=== PATIENT | female | born 2000 | race Two or more races ===

== ENCOUNTER 2024-04-08 16:16 | Emergency (ER) | payer MEDICAID, OTHER ==
[~2024-04-08] VITALS: Ht 154.9 cm; Wt 93.2 kg
[2024-04-08] MEDS: IPRATROPIUM BROM 0.5 MG/2.5ML INH SOL NEB ONE ×2 (16:59→19:12)
[2024-04-08] MEDS: ALBUTEROL SULF 2.5 MG/0.5ML(0.5%) NEB SOLN NEB ONE ×2 (16:59→19:12)
[2024-04-08] MEDS: methylPREDNISolone SOD SUCC 125 MG/2 ML VL IM ONE (17:38)
--- NOTE | 2024-04-08 18:44 | DVH ---
EXAM: XR Chest, 2 Views CLINICAL INDICATION: SOB TECHNIQUE: Frontal and lateral views of the chest. COMPARISON: None FINDINGS: LUNGS AND PLEURAL SPACES: Unremarkable. No consolidation. No pneumothorax. HEART: Unremarkable. No cardiomegaly. MEDIASTINUM: Unremarkable. Normal mediastinal contour. BONES/JOINTS: Unremarkable. No acute fracture. OTHER FINDINGS: . . . IMPRESSION: No acute cardiopulmonary process. HS:Y
--- NOTE | 2024-04-08 18:48 | ED.PDOC ---
SOB-HPI HPI Comments 23 y.o female presents to the ED for a chief complaint of SOB associated with a productive cough, congestion, wheezing, and substernal chest tightness radiating to her back that presented 2 weeks ago. Patient denies any respiratory history. Patient received one breathing treatment with respiratory relief here. No nausea, vomiting, fever or chills reported. Chief Complaint: Shortness of Breath Time Seen by MD: 18:39 Reviewed notes: Nurses Notes, Medications, Allergies Information Source: Patient Mode of Arrival: Ambulatory Severity: Moderate Timing: Weeks (2) Duration: Since onset Context: At Rest PE Risk Factors: None History of: None Modifying Factors: Nothing Associated Signs and Symptoms: Cough, Nasal Congestion, Chest Pain If cough with SOB: Productive Past Medical History PAST MEDICAL HISTORY: Denies Surgical History: Denies all surgeries INTERPRETIVE PROGRAM COORDINATOR History: No Pertinent INTERPRETIVE PROGRAM COORDINATOR History Family History Family History: Reviewed,noncontributory to illness Social History Smoker: Non-Smoker Alcohol: Denies ETOH Use Drugs: Denies Drug Use Lives In: Home Constitutional: denies: chills, diaphoresis, fatigue, fever, malaise, sweats, weakness, others EENTM: reports: nose congestion; denies: blurred vision, double vision, ear bleeding, ear discharge, ear drainage, ear pain, ear ringing, eye pain, eye redness, hearing loss, mouth pain, mouth swelling, nasal discharge, nose bleeding, nose pain, photophobia, tearing, throat pain, throat swelling, voice changes, others Respiratory: reports: cough, SOB at rest, shortness of breath, SOB with excertion, wheezing; denies: hemoptysis, orthopnea, stridor, others Cardiovascular: reports: chest pain; denies: dizzy spells, diaphoresis, Dyspnea on exertion, edema, irregular heart beat, left arm pain, lightheadedness, palp itations, PND, syncope, others Gastrointestinal: denies: abdomen distended, abdominal pain, blood streaked bowels, constipated, diarrhea, dysphagia, difficulty swallowing, hematemesis, melena, nausea, poor appetite, poor fluid intake, rectal bleeding, rectal pain, vomiting, others Genitourinary: denies: abnormal vagina bleeding, burning, dyspareunia, dysuria, flank pain, frequency, hematuria, incontinence, pain, , vagina discharge, urgency, others Neurological: denies: dizziness, fainting, headache, left sided numbness, left sided weakness, numbness, paresthesia, pre-existing deficit, right sided numbness, right sided weakness, seizure, speech problems, tingling, tremors, weakness, others Musculoskeletal: reports: back pain; denies: gout, joint pain, joint swelling, muscle pain, muscle stiffness, neck pain, others Integumetry: denies: bruises, change in color, change in hair/nails, dryness, laceration, lesions, lumps, rash, wounds, others Allergic/Immunocompromised: denies: Difficulty Healing, Frequent Infections, Hives, Itching, others Hematologic/Lymphatic: denies: anemia, blood clots, easy bleeding, easy bruising, swollen glands, others Endocrine: denies: excessive hunger, excessive sweating, excessive thirst, excessive urination, flushing, intolerance to cold, intolerance to heat, unexplained weight gain, unexplained weight loss, others Psychiatric: denies: anxiety, bipolar disorder, depression, hopeless, panic disorder, schizophrenia, sleepless, suicidal, others All Other Systems: Reviewed and Negative Physical Exam General Appearance: No Apparent Distress, Normal HEENT: Normal ENT Inspection, Pharynx Normal, TMs Normal Neck: Full Range of Motion, Non-Tender, Normal, Normal Inspection Respiratory: Wheezing (right sided ) Cardiovascular: No Edema, No JVD, No Murmur, No Gallop, Normal Peripheral Pulses, Regular Rate/Rhythm Breast Exam: Deferred Gastrointestinal: No Organomegaly, Non Tender, No Pulsatile Mass, Normal Bowel Sounds, Soft Genitalia: Deferred Pelvic: Deferred Rectal: Deferred Extremities: No calf tenderness, Normal capillary refill, Normal inspection, Normal range of motion, Non-tender, No pedal edema Musculoskeletal : Apperance: Normal Neurologic: Alert, cell stripper final II-XII nml as Tested, No Motor Deficits, Normal Affect, Normal Mood, No Sensory Deficits Cerebellar Function: Normal Reflexes: Normal Skin: Dry, Normal Color, Warm Lymphatic: No Adenopathy Was a procedure done? Was a procedure done?: No Differential Dx Differential Diagnosis: Bronchitis, Pneumonia, Respiratory Distress, URI X-Ray, Labs, Meds, VS Vital Signs Date Time Temp Pulse Resp B/P (MAP) Pulse Ox O2 Delivery O2 Flow Rate FiO2 04/08/24 17:05 20 92 Room Air* 0 21 21 04/08/24 16:47 98.4 94 16 144/92 (109) 99 Current Medications Medications (Trade) Dose Ordered Sig/Zaheer Route Start Time Stop Time Status Last Admin Albuterol (Ventolin Medneb) 5 mg ONCE ONCE NEB 04/08/24 16:45 04/08/24 16:47 DC 04/08/24 16:59 Ipratropium [place] (Atrovent Medneb) 0.5 mg ONCE ONCE NEB 04/08/24 16:45 04/08/24 16:47 DC 04/08/24 16:59 Methylprednisolone Sodium Succinate (Solu Medrol) 125 mg ONCE ONCE IM 04/08/24 16:45 04/08/24 16:47 DC 04/08/24 17:38 X-Ray, Labs, Meds, VS Comment Imaging: X-rays and CT scans were reviewed and interpreted by this provider, imaging shows no fractures and no pathological disease. Pending radiology review. Laboratory: Labs reviewed and interpreted by this provider. No significant abnormalities noted. Patient has prior medical visits reviewed. Med reconciliation performed Vital signs reviewed Time of 1ST Reevaluation: 18:44 Reevaluation 1ST: Improved Patient Education/Counseling: Diagnosis, Treatment, Prognosis, Need For Follow Up (Follow up with PCP in the next 2-4 days. Return to the emergency department if symptoms worsen.) Family Education/Counseling: No Family Present Departure 1 Departure Time of Disposition: 18:51 Impression: Primary Impression: Bronchitis Disposition: HOME / SELF CARE / HOMELESS Condition: Fair e-Prescriptions Albuterol Sulfate (Albuterol Sulfate Hfa) 108 Mcg/Act Aer 108 MCG IN TID PRN, #1 AER Prov: SHAYAN LANDIN 04/08/24 Azithromycin (Zithromax Z-Paul) 250 Mg Tab 250 MG PO DAILY for 5 Days, #6 TAB Prov: SHAYAN LANDINP 04/08/24 Prednisone (Prednisone) 20 Mg Tab 20 MG PO DAILY for 5 Days, #5 MG Prov: SHAYAN LANDINP 04/08/24 Discharged With: Self Critical Care Note Critical Care Time?: No Stability Stability form required: No Heart Score Heart Score: Heart Score Response (Comments) Value History Slightly Suspicious 0 EKG Normal 0 Age <45 0 Risk Factors No known risk factors 0 Troponin Normal limit 0 Total 0 I personally scribed for SHAYAN LANDIN ([facility]) on 04/08/24 at 18:48. Electronically submitted by Jessica Castaneda ([facility]). SHAYAN LANDIN Apr 08, 2024 18:48
[2024-04-08] MEDS ORDERED: ALBU108A5 IN (18:52)
[2024-04-08] MEDS ORDERED: PRED20TA2 PO (18:52)
[2024-04-08] MEDS ORDERED: AZITTAB PO (18:52)
[2024-04-08 18:58] VITALS: BP 134/93
[2024-04-08 19:51] VITALS: PULSE 89; RESP 20; O2SAT 98
== END 2024-04-08 19:55 | disposition home or self-care (01) ==
LOC: ER 16:26
DX: J40 Bronchitis, not specified as acute or chronic (principal)
CPT/HCPCS: 71046; 94640; 96372; 99285; J2919

== ENCOUNTER 2024-06-17 20:39 | Emergency (ER) | payer MEDICAID ==
[~2024-06-17] VITALS: Ht 154.9 cm; Wt 97.6 kg
[~2024-06-17 20:39] MED LIST: ALBU108A5 IN; AZITTAB PO; PRED20TA2 PO
--- NOTE | 2024-06-17 21:00 | ED.PDOC ---
SOB-HPI HPI Comments 24 y.o female presents to the ED for a chief complaint of SOB associated with wheezing and a productive cough that started 2 weeks ago. Patient reports similar complaint 2 months ago, was prescribed an inhaler in which she used these past 2 weeks that have alleviated some of her SOB but states she ran out of the inhaler earlier today. Patient reports SOB has decreased but wheezing is still present. Patient also mentions chest wall pain due to productive dry cough with no phlegm sputum noted. She denies any chest pain, fever, chills, nausea or vomiting. Patient also denies any medical history, including respiratory illnesses such as asthma or COPD. Time Seen by MD: 20:45 Reviewed notes: Nurses Notes, Medications, Allergies Information Source: Patient Mode of Arrival: Ambulatory Severity: Moderate Timing: Weeks (2) Duration: Since onset Context: At Rest PE Risk Factors: None History of: None Modifying Factors: Nothing Associated Signs and Symptoms: Wheeze, Cough If cough with SOB: Productive Past Medical History PAST MEDICAL HISTORY: Denies Surgical History: Denies all surgeries CLINICAL PHARMACIST History: No Pertinent CLINICAL PHARMACIST History Family History Family History: Reviewed,noncontributory to illness Social History Smoker: Non-Smoker Alcohol: Denies ETOH Use Drugs: Denies Drug Use Lives In: Home Constitutional: denies: chills, diaphoresis, fatigue, fever, malaise, sweats, weakness, others EENTM: denies: blurred vision, double vision, ear bleeding, ear discharge, ear drainage, ear pain, ear ringing, eye pain, eye redness, hearing loss, mouth pain, mouth swelling, nasal discharge, nose bleeding, nose congestion, nose pain, photophobia, tearing, throat pain, throat swelling, voice changes, others Respiratory: reports: cough, SOB at rest, shortness of breath, SOB with excertion, wheezing; denies: hemoptysis, orthopnea, stridor, others Cardiovascular: denies: chest pain, dizzy spells, diaphoresis, Dyspnea on exertion, edema, irregular heart beat, left arm pain, lightheadedness, palpitations, PND, syncope, others Gastrointestinal: denies: abdomen distended, abdominal pain, blood streaked bowels, constipated, diarrhea, dysphagia, difficulty swallowing, hematemesis, melena, nausea, poor appetite, poor fluid intake, rectal bleeding, rectal pain, vomiting, others Genitourinary: denies: abnormal vagina bleeding, burning, dyspareunia, dysuria, flank pain, frequency, hematuria, incontinence, pain, , vagina dischar ge, urgency, others Neurological: denies: dizziness, fainting, headache, left sided numbness, left sided weakness, numbness, paresthesia, pre-existing deficit, right sided numbness, right sided weakness, seizure, speech problems, tingling, tremors, weakness, others Musculoskeletal: denies: back pain, gout, joint pain, joint swelling, muscle pain, muscle stiffness, neck pain, others Integumetry: denies: bruises, change in color, change in hair/nails, dryness, laceration, lesions, lumps, rash, wounds, others Allergic/Immunocompromised: denies: Difficulty Healing, Frequent Infections, Hives, Itching, others Hematologic/Lymphatic: denies: anemia, blood clots, easy bleeding, easy bruising, swollen glands, others Endocrine: denies: excessive hunger, excessive sweating, excessive thirst, excessive urination, flushing, intolerance to cold, intolerance to heat, unexplained weight gain, unexplained weight loss, others Psychiatric: denies: anxiety, bipolar disorder, depression, hopeless, panic disorder, schizophrenia, sleepless, suicidal, others All Other Systems: Reviewed and Negative Physical Exam General Appearance: No Apparent Distress, Normal HEENT: Normal ENT Inspection, Pharynx Normal, TMs Normal Neck: Full Range of Motion, Non-Tender, Normal, Normal Inspection Respiratory: Wheezing (diffused wheezing; expiratory and inspiratory wheeze) Cardiovascular: No Edema, No JVD, No Murmur, No Gallop, Normal Peripheral Pulses, Regular Rate/Rhythm Breast Exam: Deferred Gastrointestinal: No Organomegaly, Non Tender, No Pulsatile Mass, Normal Bowel Sounds, Soft Genitalia: Deferred Pelvic: Deferred Rectal: Deferred Extremities: No calf tenderness, Normal capillary refill, Normal inspection, Normal range of motion, Non-tender, No pedal edema Musculoskeletal : Apperance: Normal Neurologic: Alert, civil design specialist II-XII nml as Tested, No Motor Deficits, Normal Affect, Normal Mood, No Sensory Deficits Cerebellar Function: Normal Reflexes: Normal Skin: Dry, Normal Color, Warm Lymphatic: No Adenopathy Was a procedure done? Was a procedure done?: No Differential Dx Differential Diagnosis: Asthma, Bronchitis, Pneumonia, Respiratory Distress, URI X-Ray, Labs, Meds, VS Vital Signs Date Time Temp Pulse Resp B/P (MAP) Pulse Ox O2 Delivery O2 Flow Rate FiO2 06/17/24 23:12 98.6 103 16 132/75 (94) 94 98.6 06/17/24 23:11 20 93 Room Air* 0 21 06/17/24 22:05 20 100 Room Air* 0 21 06/17/24 20:55 98.8 105 20 134/94 (107) 98 98.8 Current Medications Medications (Trade) Dose Ordered Sig/Zaheer Route Start Time Stop Time Status Last Admin Albuterol (Ventolin Medneb) 10 mg ONCE ONCE NEB 06/17/24 21:15 06/17/24 21:16 DC 06/17/24 22:05 Ipratropium [place] (Atrovent Medneb) 1 mg ONCE ONCE NEB 06/17/24 21:15 06/17/24 21:16 DC 06/17/24 22:05 Prednisone 60 mg ONCE ONCE PO 06/17/24 21:15 06/17/24 21:16 DC 06/17/24 21:57 Albuterol (Ventolin Medneb) 10 mg ONCE ONCE NEB 06/17/24 23:15 06/17/24 23:16 DC 06/17/24 23:12 Ipratropium [place] (Atrovent Medneb) 1 mg ONCE ONCE NEB 06/17/24 23:15 06/17/24 23:16 DC 06/17/24 23:11 X-Ray, Labs, Meds, VS Comment CXR IMPRESSION: No abnormality. MDM: Patient with history as above presented with shortness of breath. History obtained from patient. Patient was nontoxic, stable, afebrile, ambulatory, no acute distress. Exam as above. Independently reviewed imaging. Chest x-ray did not show acute cardiopulmonary disease. Reviewed external records. All findings were discussed with the patient. Differential diagnosis considered. Overall presentation is consistent with asthma exacerbation. Low suspicion for pneumonia, hypoxia, respiratory failure. Patient was treated with three Duonebs and prednisone with improvement in symptoms. Patient was reevaluated and vital signs were reviewed. Consideration was given for admission, but the patient was stable for outpatient management. Patient was prescribed Albuterol and Prednisone for outpatient treatment. Disposition: Discussed the need to follow up diagnostics, including incidental findings. Discharged the patient with instructions to obtain outpatient follow up in 1-2 days of today's symptoms and findings, with strict return precautions if patient develops new or worsening symptoms. This medical document was created using the [employer] system. Although this document has been carefully reviewed, there may still be some phonetic and typographical errors, which are due to imperfections of the software program, and do not reflect any compromise in the patient's medical care. Time of 1ST Reevaluation: 21:12 Reevaluation 1ST: Unchanged Time of 2ND Reevaluation: 23:11 Reevaluation 2ND: Improved Time of 3RD Reevaluation: 00:18 Reevaluation 3RD: Improved Patient Education/Counseling: Diagnosis, Treatment, Prognosis, Need For Follow Up Family Education/Counseling: No Family Present Departure 1 Departure Time of Disposition: 00:18 Impression: Primary Impression: Acute asthma exacerbation Qualified Codes: J45.901 - Unspecified asthma with (acute) exacerbation Disposition: 01 HOME / SELF CARE / HOMELESS Condition: Fair e-Prescriptions Albuterol Sulfate (Albuterol Sulfate Hfa) 108 Mcg/Act Aer 108 MCG IN Q4HPRN PRN, #1 AER Prov: PAYTON WORKMAN 06/17/24 Prednisone (Prednisone) 20 Mg Tab 40 MG PO DAILY for 5 Days, #10 TAB Prov: PAYTON WORKMAN 06/17/24 Critical Care Note Critical Care Time?: No Stability Stability form required: No Heart Score Heart Score: Heart Score Response (Comments) Value History N/A 0 EKG N/A 0 Age N/A 0 Risk Factors N/A 0 Troponin N/A 0 Total 0 I personally scribed for UTE HENDERSON MD ([email or web address]) on 06/17/24 at 21:12. Electronically submitted by Jessica Castaneda ([facility]). PAYTON WORKMAN Jun 17, 2024 21:00 UTE HENDERSON MD Jun 17, 2024 21:12
--- NOTE | 2024-06-17 21:52 | DVH ---
CHEST RADIOGRAPH Indication: R/o pneumonia Technique: Frontal and lateral view of the chest was obtained Comparison: XY CHEST TWO VIEWS ROUTINE on DOS: 04/08/24 FINDINGS: Lines and Tubes: None Lungs: Clear Pleura: No effusion. No pneumothorax. Cardiomediastinal contours: Unremarkable Bones: Unremarkable IMPRESSION: No abnormality.
[2024-06-17] MEDS: predniSONE 20 MG TAB PO ONE (21:57)
[2024-06-17] MEDS: ALBUTEROL SULF 2.5 MG/0.5ML(0.5%) NEB SOLN NEB ONE ×2 (22:05→23:12)
[2024-06-17] MEDS: IPRATROPIUM BROM 0.5 MG/2.5ML INH SOL NEB ONE ×2 (22:05→23:11)
[2024-06-17 23:12] VITALS: BP 132/75; PULSE 103; TEMP 98.6
[2024-06-17] MEDS ORDERED: PRED20TA2 PO (23:13)
[2024-06-17] MEDS ORDERED: ALBU108A5 IN (23:13)
[2024-06-18 00:22] VITALS: RESP 16; O2SAT 99
[2024-06-18] MEDS: ALBUTEROL SULF 2.5 MG/0.5ML(0.5%) NEB SOLN NEB ONE (00:22)
[2024-06-18] MEDS: IPRATROPIUM BROM 0.5 MG/2.5ML INH SOL NEB ONE (00:22)
== END 2024-06-18 00:41 | disposition home or self-care (01) ==
LOC: ER 20:39
DX: J45.901 Unspecified asthma with (acute) exacerbation (principal)
CPT/HCPCS: 71046; 94640; 99285; J7512

== ENCOUNTER 2024-08-09 20:15 | Emergency (ER) | payer MEDICAID ==
[~2024-08-09] VITALS: Ht 154.9 cm; Wt 99.7 kg
[2024-08-09] MEDS: ALBUTEROL SULF 2.5 MG/0.5ML(0.5%) NEB SOLN NEB ONE (22:46)
[2024-08-09] MEDS: IPRATROPIUM BROM 0.5 MG/2.5ML INH SOL NEB ONE (22:46)
[2024-08-09 22:49] VITALS: BP 132/83; PULSE 83; RESP 17; TEMP 98.6; O2SAT 96
[2024-08-09] MEDS: DexAMETHasone SOD PHOS 10MG/1ML VIAL INJ IM ONE (22:54)
[2024-08-09] MEDS ORDERED: ALBU108A5 IN (23:29)
--- NOTE | 2024-08-09 23:29 | ED.PDOC ---
SOB-HPI HPI Comments PT HAS A HISTORY OF ASTHMA NOT HAVING ANY PROBLEMS TONIGHT BUT RUN OUT OF [facility] AND HER DOCTOR GAVE HER AN APPOINTMENT IN SEPTEMBER. Chief Complaint: Asthma Time Seen by MD: 20:38 Reviewed notes: Nurses Notes, Medications, Allergies Information Source: Patient Mode of Arrival: Ambulatory Past Medical History PAST MEDICAL HISTORY: Asthma Surgical History: Denies all surgeries OFFSET LITHOGRAPHIC PRESS OPERATOR History: No Pertinent OFFSET LITHOGRAPHIC PRESS OPERATOR History Family History Family History: Reviewed,noncontributory to illness Social History Smoker: Non-Smoker Alcohol: Denies ETOH Use Drugs: Denies Drug Use Lives In: Home Constitutional: denies: chills, diaphoresis, fatigue, fever, malaise, sweats, weakness, others EENTM: denies: blurred vision, double vision, ear bleeding, ear discharge, ear drainage, ear pain, ear ringing, eye pain, eye redness, hearing loss, mouth pain, mouth swelling, nasal discharge, nose bleeding, nose congestion, nose pain, photophobia, tearing, throat pain, throat swelling, voice changes, others Respiratory: reports: cough, wheezing; denies: hemoptysis, orthopnea, SOB at rest, shortness of breath, SOB with excertion, stridor, others Cardiovascular: denies: chest pain, dizzy spells, diaphoresis, Dyspnea on exertion, edema, irregular heart beat, left arm pain, lightheadedness, palpitations, PND, syncope, others Gastrointestinal: denies: abdomen distended, abdominal pain, blood streaked bowels, constipated, diarrhea, dysphagia, difficulty swallowing, hematemesis, melena, nausea, poor appetite, poor fluid intake, rectal bleeding, rectal pain, vomiting, others Genitourinary: denies: abnormal vagina bleeding, burning, dyspareunia, dysuria, flank pain, frequency, hematuria, incontinence, pain, , vagina discharge, urgency, others Neurological: denies: dizziness, fainting, headache, left sided numbness, left sided weakness, numbness, paresthesia, pre-existing deficit, right sided numbness, right sided weakness, seizure, speech problems, tingling, tremors, weakness, others Musculoskeletal: denies: back pain, gout, joint pain, joint swelling, muscle pain, muscle stiffness, neck pain, others Integumetry: denies: bruises, change in color, change in hair/nails, dryness, laceration, lesions, lumps, rash, wounds, others Allergic/Immunocompromised: denies: Difficulty Healing, Frequent Infections, Hives, Itching, others Hematologic/Lymphatic: denies: anemia, blood clots, easy bleeding, easy bruising, swollen glands, others Endocrine: denies: excessive hunger, excessive sweating, excessive thirst, excessive urination, flushing, intolerance to cold, intolerance to heat, unexplained weight gain, unexplained weight loss, others Psychiatric: denies: anxiety, bipolar disorder, depression, hopeless, panic disorder, schizophrenia, sleepless, suicidal, others Physical Exam General Appearance: No Apparent Distress, Normal HEENT: Normal ENT Inspection, Pharynx Normal, TMs Normal Neck: Full Range of Motion, Non-Tender Respiratory: Chest Non-Tender, Expiration, Inspiration, No Accessory Muscle Use, No Respiratory Distress, Wheezing Cardiovascular: No Edema, No JVD, No Murmur, No Gallop, Normal Peripheral Pulses, Regular Rate/Rhythm Breast Exam: Deferred Gastrointestinal: No Organomegaly, Non Tender, No Pulsatile Mass, Normal Bowel Sounds, Soft Genitalia: Deferred Pelvic: Deferred Rectal: Deferred Extremities: Normal capillary refill, Normal inspection, Normal range of motion, Non-tender, No pedal edema Musculoskeletal : Apperance: Normal Neurologic: Alert, search director II-XII nml as Tested, No Motor Deficits, Normal Affect, Normal Mood, No Sensory Deficits Cerebellar Function: Normal Reflexes: Normal Skin: Dry, Normal Color, Warm Lymphatic: No Adenopathy Was a procedure done? Was a procedure done?: No Differential Dx Differential Diagnosis: Asthma, Bronchitis, Panic Attack, Pneumonia X-Ray, Labs, Meds, VS Vital Signs Date Time Temp Pulse Resp B/P (MAP) Pulse Ox O2 Delivery O2 Flow Rate FiO2 08/09/24 22:49 98.6 83 17 132/83 (99) 96 98.6 08/09/24 22:49 83 17 96 Room Air 08/09/24 22:46 18 93 Room Air* 0 21 08/09/24 20:20 97.8 105 18 127/94 (105) 95 97.8 Current Medications Medications (Trade) Dose Ordered Sig/Zaheer Route Start Time Stop Time Status Last Admin Albuterol (Ventolin Medneb) 5 mg ONCE ONCE NEB 08/09/24 22:30 08/09/24 22:31 DC 08/09/24 22:46 Ipratropium [place] (Atrovent Medneb) 0.5 mg ONCE ONCE NEB 08/09/24 22:30 08/09/24 22:31 DC 08/09/24 22:46 Dexamethasone Sodium Phosphate (Decadron Injection) 10 mg ONCE ONCE IM 08/09/24 22:30 08/09/24 22:31 DC 08/09/24 22:54 X-Ray, Labs, Meds, VS Comment Patient received duo neb x1 lung sounds clear equal bilateral on exam patient requesting discharge at this time. Script for refill patient's albuterol advis ed to take medications as prescribed side effects discussed advised to follow up with her PCP for future refills advised her of the importance of keeping her rescue inhaler medication refilled at all times and not patient indicates understanding agrees with discharge plan of care. ER Return precautions given. Time of 1ST Reevaluation: 22:00 Reevaluation 1ST: Unchanged Time of 2ND Reevaluation: 23:44 Reevaluation 2ND: Improved Patient Education/Counseling: Diagnosis, Treatment, Prognosis, Need For Follow Up Family Education/Counseling: No Family Present Departure 1 Departure Time of Disposition: 23:44 Impression: Primary Impression: Acute asthma Disposition: 01 HOME / SELF CARE / HOMELESS Condition: Stable e-Prescriptions Albuterol Sulfate (Albuterol Sulfate Hfa) 108 Mcg/Act Aer 108 MCG IN Q4HPRN PRN, #1 AER Prov: MONI MERA 08/09/24 Discharged With: Self Critical Care Note Critical Care Time?: No Stability Stability form required: No Heart Score Heart Score: Heart Score Response (Comments) Value History N/A 0 EKG N/A 0 Age <45 0 Risk Factors N/A 0 Troponin N/A 0 Total 0 MONI MERA August 09, 2024 23:29
== END 2024-08-09 23:42 | disposition home or self-care (01) ==
LOC: ER 20:15
DX: J45.909 Unspecified asthma, uncomplicated (principal); Z76.0 Encounter for issue of repeat prescription
CPT/HCPCS: 94640; 96372; 99283; J1100

== ENCOUNTER 2024-11-23 13:20 | Emergency (ER) | payer MEDICAID ==
[~2024-11-23] VITALS: Ht 154.9 cm; Wt 99.0 kg
--- NOTE | 2024-11-23 14:42 | ED.PDOC ---
Back pain HPI HPI Comments This is a 24 year old female presenting to the ED with chief complaint of back pain. Patient reports that she had bent down yesterday, causing her to feel like she pulled something in her lower back and she is now experiencing right lower back pain that radiates down her right leg. Patient relays that she has tried using lidocaine patches and Ibuprofen with minimal relief noted. Patient denies any numbness, weakness, tingling, fall, or injury. Chief Complaint: Back Pain Time Seen by MD: 14:41 Reviewed Notes: Nurses Notes, Medications, Allergies Allergies: Coded Allergies: NO KNOWN ALLERGIES (Unverified , 04/08/24) Home Meds Active Scripts Cyclobenzaprine Hcl (Cyclobenzaprine Hcl) 10 Mg Tab, 10 MG PO TID for 10 Days, #30 TAB Prov:SYLVIA BEAUCHAMP MD 11/23/24 Diclofenac Potassium (Diclofenac Potassium) 50 Mg Tab, 1 TAB PO TIDP for 10 Days, #30 TAB Prov:SYLVIA BEAUCHAMP MD 11/23/24 Albuterol Sulfate (Albuterol Sulfate Hfa) 108 Mcg/Act Aer, 108 MCG IN Q4HPRN PRN, #1 AER Prov:MONI MERA TIMBER HARVESTER OPERATOR 08/09/24 Prednisone (Prednisone) 20 Mg Tab, 40 MG PO DAILY for 5 Days, #10 TAB Prov:PAYTON WORKMAN PAC 06/17/24 Albuterol Sulfate (Albuterol Sulfate Hfa) 108 Mcg/Act Aer, 108 MCG IN TID PRN, #1 AER Prov:SHAYAN LNADIN TIMBER HARVESTER OPERATOR 04/08/24 Azithromycin (Zithromax Z-Paul) 250 Mg Tab, 250 MG PO DAILY for 5 Days, #6 TAB Prov:SHAYAN LANDIN TIMBER HARVESTER OPERATOR 04/08/24 Prednisone (Prednisone) 20 Mg Tab, 20 MG PO DAILY for 5 Days, #5 MG Prov:SHAYAN LANDIN TIMBER HARVESTER OPERATOR 04/08/24 Information Source: Patient Mode of Arrival: Ambulatory Timing: Days Duration: Since onset Location of Back pain: (R) Lower back Radiates to: Posterior: (R) Thigh Severity: Moderate Prehospital treatment: None Quality: Aching Onset: Bending History of: None Modifying Factors: Movement Past Medical History PAST MEDICAL HISTORY: Asthma Surgical History: Denies all surgeries CAR HOPPER History: No Pertinent CAR HOPPER History Family History Family History: Reviewed,noncontributory to illness Social History Smoker: Non-Smoker Alcohol: Denies ETOH Use Drugs: Denies Drug Use Lives In: Home Constitutional: denies: chills, diaphoresis, fatigue, fever, malaise, sweats, weakness, others EENTM: denies: blurred vision, double vision, ear bleeding, ear discharge, ear drainage, ear pain, ear ringing, eye pain, eye redness, hearing loss, mouth pain, mouth swelling, nasal discharge, nose bleeding, nose congestion, nose pain, photophobia, tearing, throat pain, throat swelling, voice changes, others Respiratory: denies: cough, hemoptysis, orthopnea, SOB at rest, shortness of breath, SOB with excertion, stridor, wheezing, others Cardiovascular: denies: chest pain, dizzy spells, diaphoresis, Dyspnea on exertion, edema, irregular heart beat, left arm pain, lightheadedness, palpitations, PND, syncope, others Gastrointestinal: denies: abdomen distended, abdominal pain, blood streaked bowels, constipated, diarrhea, dysphagia, difficulty swallowing, hematemesis, melena, nausea, poor appetite, poor fluid intake, rectal bleeding, rectal pain, vomiting, others Genitourinary: denies: abnormal vagina bleeding, burning, dyspareunia, dysuria, flank pain, frequency, hematuria, incontinence, pain, , vagina discharge, urgency, others Neurological: denies: dizziness, fainting, headache, left sided numbness, left sided weakness, numbness, paresthesia, pre-existing deficit, right sided numbness, right sided weakness, seizure, speech problems, tingling, tremors, weakness, others Musculoskeletal: reports: back pain; denies: gout, joint pain, joint swelling, muscle pain, muscle stiffness, neck pain, others Integumetry: denies: bruises, change in color, change in hair/nails, dryness, laceration, lesions, lumps, rash, wounds, others Allergic/Immunocompromised: denies: Difficulty Healing, Frequent Infections, Hives, Itching, others Hematologic/Lymphatic: denies: anemia, blood clots, easy bleeding, easy bruising, swollen glands, others Endocrine: denies: excessive hunger, excessive sweating, excessive thirst, excessive urination, flushing, intolerance to cold, intolerance to heat, unexplained weight gain, unexplained weight loss, others Psychiatric: denies: anxiety, bipolar disorder, depression, hopeless, panic disorder, schizophrenia, sleepless, suicidal, others All Other Systems: Reviewed and Negative Physical Exam General Appearance: Mild Distress, Obese HEENT: Normal ENT Inspection, Pharynx Normal, TMs Normal Neck: Full Range of Motion, Non-Tender, Normal, Normal Inspection Respiratory: Chest Non-Tender, Lungs Clear, No Accessory Muscle Use, No Respiratory Distress, Normal Breath Sounds Cardiovascular: No Edema, No JVD, No Murmur, No Gallop, Normal Peripheral Pulses, Regular Rate/Rhythm Breast Exam: Deferred Gastrointestinal: No Organomegaly, Non Tender, No Pulsatile Mass, Normal Bowel Sounds, Soft Genitalia: Deferred Pelvic: Deferred Rectal: Deferred Extremities: No calf tenderness, Normal capillary refill, Normal inspection, Normal range of motion, Non-tender, No pedal edema Musculoskeletal : Location: Bilateral Extremity Location: Back Apperance: Limited ROM, Tenderness: Moderate Neurologic: Alert, desk pen set assembler II-XII nml as Tested, No Motor Deficits, Normal Affect, Normal Mood, No Sensory Deficits Cerebellar Function: Normal Reflexes: Normal Skin: Dry, Normal Color, Warm Peripheral Pulses: 1+ carotid (R), 1+ carotid (L) Lymphatic: No Adenopathy Was a procedure done? Was a procedure done?: No Back Pain Differential Dx Differential Diagnosis: DJD, Musculoskeletal Pain X-Ray, Labs, Meds, VS Vital Signs Date Time Temp Pulse Resp B/P (MAP) Pulse Ox O2 Delivery O2 Flow Rate FiO2 11/23/24 14:51 98.5 73 18 133/82 (99) 96 98.5 11/23/24 14:51 73 18 96 Room Air* 0 21 11/23/24 13:21 98.1 77 18 120/64 97 98.1 Current Medications Medications (Trade) Dose Ordered Sig/Zaheer Route Start Time Stop Time Status Last Admin Ketorolac Tromethamine (Toradol Injection) 60 mg ONCE ONCE IM 11/23/24 15:00 11/23/24 15:01 DC 11/23/24 15:02 X-Ray, Labs, Meds, VS Comment Patient came in to the [facility] complaining of back pain she states she just bent and then got spasm Patient will receive Toradol 60 mg IM and we discharged patient Time of 1ST Reevaluation: 14:30 Reevaluation 1ST: Unchanged Time of 2ND Reevaluation: 14:46 Reevaluation 2ND: Unchanged Consultation: PCP Patient Education/Counseling: Diagnosis, Treatment, Prognosis, Need For Follow Up Family Education/Counseling: Diagnosis, Treatment, Prognosis, Need For Follow Up, No Family Present SEPSIS Sepsis Screen Date sepsis recognized/suspect: Nov 23, 2024 Time Sepsis recognized/suspect: 1324 Recent Procedure: No On Antibiotic Therapy: No Respiratory Rate >20: No Heart Rate >90: No Temp<36 C (96.8 F) or >38.3 C: No SBP <90 or MAP <65 mmHG: No New Acute Mental Status Change: No Is the patient on CPAP, BIPAP,: No Vital Signs Date Time Temp Pulse Resp B/P (MAP) Pulse Ox O2 Delivery O2 Flow Rate FiO2 11/23/24 14:51 98.5 73 18 133/82 (99) 96 98.5 11/23/24 14:51 73 18 96 Room Air* 0 21 11/23/24 13:21 98.1 77 18 120/64 97 98.1 Medications Medications Dose Ordered Sig/Zaheer Route Start Time Stop Time Status Last Admin Dose Admin Ketorolac Tromethamine 60 mg ONCE ONCE IM 11/23/24 15:00 11/23/24 15:01 DC 11/23/24 15:02 Departure 1 Departure Time of Disposition: 14:50 Impression: Primary Impression: Musculoskeletal pain Additional Impression: Lumbar sprain Qualified Codes: S33.5XXA - Sprain of ligaments of lumbar spine, initial encounter Disposition: HOME / SELF CARE / HOMELESS Condition: Fair Additional Instructions: Local heat and follow up with your PCP e-Prescriptions Cyclobenzaprine Hcl (Cyclobenzaprine Hcl) 10 Mg Tab 10 MG PO TID for 10 Days, #30 TAB Prov: SYLVIA BEAUCHAMP MD 11/23/24 Diclofenac Potassium (Diclofenac Potassium) 50 Mg Tab 1 TAB PO TIDP for 10 Days, #30 TAB Prov: SYLVIA BEAUCHAMP MD 11/23/24 Discharged With: Self Critical Care Note Critical Care Time?: No Stability Stability form required: No Heart Score Heart Score: Heart Score Response (Comments) Value History N/A 0 EKG N/A 0 Age <45 0 Risk Factors No known risk factors 0 Troponin N/A 0 Total 0 I personally scribed for SYLVIA BEAUCHAMP MD ([email or web address]) on 11/23/24 at 14:42. Electronically submitted by Miguel Shen ([email or web address]). SYLVIA BEAUCHAMP MD Nov 23, 2024 14:42
[2024-11-23] MEDS ORDERED: DICL50TA2 PO (14:48)
[2024-11-23] MEDS ORDERED: CYCL-839 PO (14:48)
[2024-11-23 14:51] VITALS: BP 133/82; PULSE 73; RESP 18; TEMP 98.5; O2SAT 96
[2024-11-23] MEDS: KETOROLAC TROMETH 60MG/2ML VIAL IM ONE (15:02)
== END 2024-11-23 15:23 | disposition home or self-care (01) ==
LOC: ER 13:20
DX: S33.5XXA Sprain of ligaments of lumbar spine, initial encounter (principal); M79.10 Myalgia, unspecified site; J45.909 Unspecified asthma, uncomplicated; X58.XXXA Exposure to other specified factors, initial encounter; Y93.89 Activity, other specified; Y92.89 Other specified places as the place of occurrence of the external cause; Y99.8 Other external cause status
CPT/HCPCS: 96372; 99283; J1885

== ENCOUNTER 2024-11-25 13:36 | Emergency (ER) | payer MEDICAID ==
[~2024-11-25] VITALS: Ht 154.9 cm; Wt 100.0 kg
[~2024-11-25 13:36] MED LIST changes: +CYCL-839 PO; +DICL50TA2 PO
[2024-11-25 13:38] VITALS: TEMP 98.3
[2024-11-25 15:29] VITALS: BP 127/78; PULSE 68; RESP 18; O2SAT 100
--- NOTE | 2024-11-25 15:49 | ED.PDOC ---
History of Present Illness HPI Comments 24 year old female presents to the ED with a chief complaint of back pain onset 4 days. Patient has been experiencing low back pain radiates to bilateral hips and bilateral knees for the past 4 days, after bending over and feeling a "pull". She was seen in this ED on 11/23/24 for same symptoms, was prescribed Diclofenac, Cyclobenzaprine, with no improvement of symptoms. Patient noticed pain worsened today, is not able to get out of bed without assistance. Denies fall, numbness/tingling, weakness. PMHx asthma. No other symptoms or modifying factors present at this time. Chief Complaint: Back Pain Time Seen by MD: 15:45 Reviewed Notes: Medications, Allergies Allergies: Coded Allergies: NO KNOWN ALLERGIES (Unverified , 04/08/24) Home Meds Active Scripts Hydrocodone-Acetaminophen (Hydrocodone Bitartrate/AC 5-325 mg) 1 Tab Tab, 1 TAB PO BID for 5 Days, #10 TAB Prov:SYLVIA BEAUCHAMP MD 11/25/24 Cyclobenzaprine Hcl (Cyclobenzaprine Hcl) 10 Mg Tab, 10 MG PO TID for 10 Days, #30 TAB Prov:SYLVIA BEAUCHAMP MD 11/23/24 Diclofenac Potassium (Diclofenac Potassium) 50 Mg Tab, 1 TAB PO TIDP for 10 Days, #30 TAB Prov:SYLVIA BEAUCHAMP MD 11/23/24 Albuterol Sulfate (Albuterol Sulfate Hfa) 108 Mcg/Act Aer, 108 MCG IN Q4HPRN PRN, #1 AER Prov:MONI MERA HOME HEALTH CARE WORKER 08/09/24 Prednisone (Prednisone) 20 Mg Tab, 40 MG PO DAILY for 5 Days, #10 TAB Prov:PAYTON WORKMAN [facility] 06/17/24 Albuterol Sulfate (Albuterol Sulfate Hfa) 108 Mcg/Act Aer, 108 MCG IN TID PRN, #1 AER Prov:SHAYAN LANDINP 04/08/24 Azithromycin (Zithromax Z-Paul) 250 Mg Tab, 250 MG PO DAILY for 5 Days, #6 TAB Prov:SHAYAN LANDINP 04/08/24 Prednisone (Prednisone) 20 Mg Tab, 20 MG PO DAILY for 5 Days, #5 MG Prov:SHAYAN LNADINP 04/08/24 Information Source: Patient Mode of Arrival: Ambulatory Severity: Moderate Duration: Since onset Prehospital treatment: None Past Medical History PAST MEDICAL HISTORY: Asthma Surgical History: Denies all surgeries JEWELRY DIPPER History: No Pertinent JEWELRY DIPPER History Family History Family History: Reviewed,noncontributory to illness Social History Smoker: Non-Smoker Alcohol: Denies ETOH Use Drugs: Denies Drug Use Lives In: Home Constitutional: denies: chills, diaphoresis, fatigue, fever, malaise, sweats, weakness, others EENTM: denies: blurred vision, double vision, ear bleeding, ear discharge, ear drainage, ear pain, ear ringing, eye pain, eye redness, hearing loss, mouth pain, mouth swelling, nasal discharge, nose bleeding, nose congestion, nose pain, photophobia, tearing, throat pain, throat swelling, voice changes, others Respiratory: denies: cough, hemoptysis, orthopnea, SOB at rest, shortness of breath, SOB with excertion, stridor, wheezing, others Cardiovascular: denies: chest pain, dizzy spells, diaphoresis, Dyspnea on exertion, edema, irregular heart beat, left arm pain, lightheadedness, palpitations, PND, syncope, others Gastrointestinal: denies: abdomen distended, abdominal pain, blood streaked bowels, constipated, diarrhea, dysphagia, difficulty swallowing, hematemesis, melena, nausea, poor appetite, poor fluid intake, rectal bleeding, rectal pain, vomiting, others Genitourinary: denies: abnormal vagina bleeding, burning, dyspareunia, dysuria, flank pain, frequency, hematuria, incontinence, pain, , vagina discharge, urgency, others Neurological: denies: dizziness, fainting, headache, left sided numbness, left sided weakness, numbness, paresthesia, pre-existing deficit, right sided numbness, right sided weakness, seizure, speech problems, tingling, tremors, weakness, others Musculoskeletal: reports: back pain, others (bilateral knee and bilateral hip pain); denies: gout, joint pain, joint swelling, muscle pain, muscle stiffness, neck pain Integumetry: denies: bruises, change in color, change in hair/nails, dryness, laceration, lesions, lumps, rash, wounds, others Allergic/Immunocompromised: denies: Difficulty Healing, Frequent Infections, Hives, Itching, others Hematologic/Lymphatic: denies: anemia, blood clots, easy bleeding, easy bruising, swollen glands, others Endocrine: denies: excessive hunger, excessive sweating, excessive thirst, excessive urination, flushing, intolerance to cold, intolerance to heat, unexplained weight gain, unexplained weight loss, others Psychiatric: denies: anxiety, bipolar disorder, depression, hopeless, panic disorder, schizophrenia, sleepless, suicidal, others All Other Systems: Reviewed and Negative Physical Exam General Appearance: Moderate Distress, Obese HEENT: Normal ENT Inspection, PERRL/EOMI, Pharynx Normal, TMs Normal Neck: Full Range of Motion, Non-Tender, Normal, Normal Inspection Respiratory: Chest Non-Tender, Lungs Clear, No Accessory Muscle Use, No Respiratory Distress, Normal Breath Sounds Cardiovascular: No Edema, No JVD, No Murmur, No Gallop, Normal Peripheral Pulses, Regular Rate/Rhythm Breast Exam: Deferred Gastrointestinal: No Organomegaly, Non Tender, No Pulsatile Mass, Normal Bowel Sounds, Soft Genitalia: Deferred Pelvic: Deferred Rectal: Deferred Extremities: No calf tenderness, Normal capillary refill, Normal inspection, Normal range of motion, Non-tender, No pedal edema Musculoskeletal : Location: Bilateral Extremity Location: Back Apperance: Normal, Limited ROM, Tenderness: Moderate, Other (straight leg elevation pain foot on both sides) Neurologic: Alert, silk examiner II-XII nml as Tested, No Motor Deficits, Normal Affect, Normal Mood, No Sensory Deficits Cerebellar Function: Normal Reflexes: Normal Skin: Dry, Normal Color, Warm Peripheral Pulses: 1+ carotid (R), 1+ carotid (L) Lymphatic: No Adenopathy Was a procedure done? Was a procedure done?: No Differential Dx Considerations may include: Spine DJD with a radiculopathy X-Ray, Labs, Meds, VS Vital Signs Date Time Temp Pulse Resp B/P (MAP) Pulse Ox O2 Delivery O2 Flow Rate FiO2 11/25/24 15:29 68 18 127/78 (94) 100 11/25/24 15:29 68 18 100 Room Air 11/25/24 13:38 98.3 76 16 137/84 96 98.3 X-Ray, Labs, Meds, VS Comment Patient came to the [facility] with a severe pain to low back pain radiating to both legs patient did not have any injuries was all spontaneous after bending she will seen in the ER on Monday and given medication and also an injections but not in helped CT lumbar spine negative all along Patient will go home to continue present management we will and prednisone Time of 1ST Reevaluation: 16:15 Reevaluation 1ST: Unchanged Time of 2ND Reevaluation: 17:23 Reevaluation 2ND: Improved Consultation: PCP Patient Education/Counseling: Diagnosis, Treatment, Prognosis, Need For Follow Up Family Education/Counseling: Diagnosis, Treatment, Prognosis, Need For Follow Up, No Family Present SEPSIS Sepsis Screen Date sepsis recognized/suspect: Nov 25, 2024 Time Sepsis recognized/suspect: 1334 Recent Procedure: No On Antibiotic Therapy: No Respiratory Rate >20: No Heart Rate >90: No Temp<36 C (96.8 F) or >38.3 C: No SBP <90 or MAP <65 mmHG: No New Acute Mental Status Change: No Is the patient on CPAP, BIPAP,: No Physician Orders Ls Spine Wo Contrast (11/25/24 15:49) Vital Signs Date Time Temp Pulse Resp B/P (MAP) Pulse Ox O2 Delivery O2 Flow Rate FiO2 11/25/24 15:29 68 18 127/78 (94) 100 11/25/24 15:29 68 18 100 Room Air 11/25/24 13:38 98.3 76 16 137/84 96 98.3 Departure 1 Departure Time of Disposition: 17:24 Impression: Primary Impression: Lumbar radiculopathy Additional Impression: Musculoskeletal pain Disposition: 01 HOME / SELF CARE / HOMELESS Condition: Fair Additional Instructions: Music present management and and prednisone to it e-Prescriptions Hydrocodone-Acetaminophen (Hydrocodone Bitartrate/AC 5-325 mg) 1 Tab Tab 1 TAB PO BID for 5 Days, #10 TAB Prov: SYLVIA BEAUCHAMP MD 11/25/24 Discharged With: Self Critical Care Note Critical Care Time?: No Stability Stability form required: No Heart Score Heart Score: Heart Score Response (Comments) Value History N/A 0 EKG N/A 0 Age <45 0 Risk Factors No known risk factors 0 Troponin N/A 0 Total 0 I personally scribed for SYLVIA BEAUCHAMP MD ([email or web address]) on 11/25/24 at 15:49. Electronically submitted by Catherine Calabrese ([email or web address]). SYLVIA BEAUCHAMP MD Nov 25, 2024 15:49
--- NOTE | 2024-11-25 16:45 | DVH ---
CT LS SPINE WO CONTRAST Date: 11/25/2024 03:56 PM History: Severe back pain with a radiculitis Comparison: None TECHNIQUE: Multiple axial CT images of the lumbosacral spine were obtained using bone algorithm. Axial and coron al reformatting was done. Bone and soft tissue windows were reviewed. Radiation Dose Information: CT Dose: CTDI volume is 38.35 mGy. Dose-length product is 1291.84 mGy*cm FINDINGS: No CT evidence of definite acute fracture, spinal dislocation, or significant appearing acute subluxa tion is seen. The visualized paraspinal soft tissues are grossly unremarkable. T12-L1 There is no evidence of central spinal canal or neuroforaminal stenosis. L1-L2 There is no evidence of central spinal canal or neuroforaminal stenosis. L2-L3 There is no evidence of central spinal canal or neuroforaminal stenosis. L3-L4 There is no evidence of central spinal canal or neuroforaminal stenosis. L4-L5 There is no evidence of central spinal canal or neuroforaminal stenosis. L5-S1 There is no evidence of central spinal canal or neuroforaminal stenosis. IMPRESSION: 1. No definite CT evidence of acute fracture or dislocation of the bony lumbar spine. 2. All CT scans at this medical facility are performed using dose modulation techniques as appropriate to a performed exam including the following: Automated exposure control was utilized; adjustment of t he MA and/or KV according to patient size; and use of iterative reconstruction technique.
[2024-11-25] MEDS ORDERED: HYDR-4902 PO (17:27)
[2024-11-25] MEDS: KETOROLAC TROMETH 60MG/2ML VIAL IM ONE (17:40)
== END 2024-11-25 17:46 | disposition home or self-care (01) ==
LOC: ER 13:36
DX: M54.16 Radiculopathy, lumbar region (principal); M79.18 Myalgia, other site; J45.909 Unspecified asthma, uncomplicated; M25.551 Pain in right hip; M25.552 Pain in left hip; Z79.899 Other long term (current) drug therapy
CPT/HCPCS: 72131; 96372; 99285; J1885